=== PATIENT | male | born 1930 | race Caucasian/White ===

== ENCOUNTER 2017-11-30 16:52 | Inpatient (IN) ==
[2017-11-30] MEDS ORDERED: Azithromycin 500 MG in D5% in Water 250 ML IVPB ONE (17:36)
[2017-11-30 17:46] LABS: INR 1.4; Prothrombin Time 15.3 Seconds (9.4-12.1)
[2017-11-30 17:49] LABS: Activated Partial Thrombo Time 27.6 Seconds (26.0-36.0)
[2017-11-30] MEDS ORDERED: cefTRIAXone 2,000 MG in Water for inj. (sterile) 20 ML 20 ML IVP ONE (17:56)
[2017-11-30 17:58] LABS: BUN/Creatinine Ratio 19 (6-26); Blood Urea Nitrogen 23 mg/dL (8-23); Calcium 8.4 mg/dL (8.6-10.3); Carbon Dioxide 26 mEq/L (23-29); Chloride 106 mEq/L (98-107); Glucose 123 mg/dL (70-105); Osmolality,Calculated 287 (280-300); Potassium 4.9 mEq/L (3.5-5.1); Sodium 136 mEq/L (136-145); eGFR For African Americans > 60 (> 60); eGFR For Non-African Americans 55 (> 60)
[2017-11-30 18:05] LABS: Troponin I 0.06 ng/mL (< 0.04)
[2017-11-30] MEDS ORDERED: Aspirin 81 MG TAB.CHEW PO STA (18:15)
[2017-11-30 18:55] LABS: Eosinophils % 1.2 %; Lymphocytes % 7.6 %; Mean Corpuscular Hemoglobin 27.9 pg (28.0-33.3)
[2017-11-30 18:57] LABS: Basophils # 0.1 K/mcL (0.0-0.2); Basophils % 0.7 %; Eosinophils # 0.1 K/mcL (0.0-0.6); Hematocrit 43.9 % (37.5-50.1); Hemoglobin 14.6 g/dL (12.9-16.9); Immature Granulocytes % 0.4 % (0-4); Lymphocytes # 0.6 K/mcL (0.6-4.6); Mean Corpuscular HGB Conc 33.3 g/dL (31.6-35.5); Mean Corpuscular Volume 83.9 fL (83.0-100.0); Monocytes # 1.1 K/mcL (0.0-1.3); Monocytes % 14.5 %; Red Blood Count 5.23 M/mcL (4.19-5.50); Segmented Neutrophils % 75.6 %
--- NOTE | 2017-11-30 19:00 | Emergency Department Note ---
Disposition Clinical Impression: Elevated troponin I level, Thrombocytopenia, Hypoxemia Community acquired pneumonia Qualifiers: Laterality: unspecified laterality Qualified Code(s): J18.9 - Pneumonia, unspecified organism Disposition: Admitted As Inpatient Condition: Fair Referrals: NONE,PCP [Primary Care Provider] - Forms: ED Satisfaction Letter Time of Disposition: 20:11 SOB HPI - General Chief Complaint: ED Shortness of Breath/Dyspnea Stated Complaint: SOB Time Seen by Provider: 11/30/17 17:13 Source: patient Mode of arrival: ambulatory Limitations: no limitations Nursing Notes Reviewed: Yes Vital Signs Reviewed: Yes - History of Present Illness Patient is an 87-year-old male who presents to [facility] ED with a chief complaint of shortness of breath. States it has been worsening over the last 2-3 days. He has had a mild cough and states he has some blood streaked sputum when he clears his throat. Denies any nausea, vomiting, fever or chills. No chest pain, abdominal pain, problems with urination or bowel movements. States he has become more short of breath especially with exertion. No prior cardiac history. No prior problems with any congestive heart failure or COPD. Patient does smoke in the past about 50 years ago. Patient is not on any home oxygen. Pt Subjective Complaint: shortness of breath Onset (ago): day(s) Context: occurred during exertion Severity: moderate Consistency/Duration: gradually worsening Improves with: rest Worsens with: exertion Associated symptoms: Reports: cough. Denies: chest pain, fever, wheezing, nausea/vomiting, abdominal pain Treatment prior to arrival: none Cough present: Yes Cough Frequency: Intermittent Sputum production: No - Related Data Home oxygen amount: none Home Medications Medication Instructions Recorded Confirmed No Known Home Drugs 11/02/16 11/30/17 Allergies Allergy/AdvReac Type Severity Reaction Status Date / Time No Known Allergies Allergy Verified 11/30/17 15:25 All systems ED: reviewed and negative except as stated. Past Medical History - Past Medical History Attestation: Yes The following information was validated with the patient. Source: patient Medical history: Reports: hyperlipidemia, hypertension Surgical history: Reports: prostatectomy Psychiatric history: Reports: depression - Social History Smoking Status: Never smoker Smokeless Tobacco Status: No Alcohol use: Reports: none Drug use: Reports: none Physical Exam - General Limitations: no limitations General appearance: alert - Head Head exam: atraumatic, normocephalic, normal inspection - Eye Eye exam: Present: normal appearance, PERRL, EOMI - ENT ENT exam: normal exam, normal oropharynx, mucous membranes moist - Neck Neck exam: Present: normal inspection, full ROM, trachea midline - Chest Chest inspection: Present: normal inspection, symmetric chest wall rise - Respiratory Respiratory exam: Present: other (Mildly decreased breath sounds) - Cardiovascular Cardiovascular exam: Present: regular rate, normal rhythm, normal heart sounds - Abdominal Exam Abdominal exam: Present: soft, Non-Tender. Absent: tenderness, distention, guarding, rebound, rigidity - Extremities Exam Extremities exam: Present: normal inspection, full ROM. Absent: tenderness, pedal edema - Back Exam Back exam: Present: normal inspection, full ROM. Absent: tenderness - Neurological Exam Neurological exam: Present: alert, oriented X3 - Psychiatric Psychiatric exam: Present: normal affect, normal mood - Skin Skin exam: Present: warm, dry, intact, normal color Course Course Narrative: Patient seen and examined. Shortness of breath worsening over the last several days. He is currently on room air and saturating about 91%. Chest x-ray done at urgent care showed bilateral pneumonia. We will start on IV Rocephin and azithromycin. Cardiopulmonary workup initiated here. - Reevaluation(s) Reevaluation #1: Labwork shows mildly elevated troponin of 0.06. BNP slightly elevated in the 200s. Patient was given a dose of aspirin. I discussed with hospitalist Dr. Yasmany ramon who has accepted patient for admission. He would like a dose of 10 mg of hydralazine. I went back to evaluate the patient to see if his blood pressure had improved, which the systolic blood pressure has gone to 164. He is not on any antihypertensive medications. Since he is asymptomatic at this time, we will hold off on any BP medications. Patient oxygen status is 94% on 2 L at this time. Time: 20:10 Vital Signs Temperature 97.3 F L 11/30/17 16:55 Pulse Rate 91 11/30/17 16:55 Respiratory Rate 22 11/30/17 16:55 Blood Pressure 227/97 11/30/17 16:55 O2 Sat by Pulse Oximetry 89 11/30/17 16:55 Temperature 97.3 F L 11/30/17 16:55 Pulse Rate 85 11/30/17 18:26 Respiratory Rate 15 11/30/17 18:26 Blood Pressure 177/101 11/30/17 18:26 O2 Sat by Pulse Oximetry 93 11/30/17 18:26 Oxygen Delivery Oxygen Delivery Nasal Cannula Shortness of Breath/Dyspnea - Medical Records Medical records reviewed: Yes I reviewed the patient's medical records. - Lab Data Lab results reviewed: Yes I reviewed the patient's lab results. Result diagrams: 11/30/17 18:19 11/30/17 17:26 Lab Results 11/30/17 11/30/17 11/30/17 Range/Units 17:26 17:26 17:26 WBC (4.3-11.1) K/mcL RBC (4.19-5.50) M/mcL Hgb (12.9-16.9) g/dL Hct (37.5-50.1) % MCV (83.0-100.0) fL MCH (28.0-33.3) pg MCHC (31.6-35.5) g/dL RDW (11.5-14.5) % Plt Count MPV Immature Gran % (0-4) % Seg Neutrophils % % Lymphocytes % % Monocytes % % Eosinophils % % Basophils % % Neutrophils # (1.6-8.9) K/mcL Lymphocytes # (0.6-4.6) K/mcL Monocytes # (0.0-1.3) K/mcL Eosinophils # (0.0-0.6) K/mcL Basophils # (0.0-0.2) K/mcL Plt Count ,Citrate (150-600) PT (9.4-12.1) Seconds INR APTT (26.0-36.0) Seconds Sodium 136 (136-145) mEq/L Potassium 4.9 (3.5-5.1) mEq/L Chloride 106 (98-107) mEq/L Carbon Dioxide 26 (23-29) mEq/L BUN 23 (8-23) mg/dL Creatinine 1.23 (0.70-1.30) mg/dL Est GFR ( Amer) > 60 (> 60) Est GFR (Non-Af Amer) 55 L (> 60) BUN/Creatinine Ratio 19 (6-26) Glucose 123 H (70-105) mg/dL Calculated Osmolality 287 (280-300) Lactic Acid 1.4 (0.5-2.2) mmol/L Calcium 8.4 L (8.6-10.3) mg/dL Troponin I 0.06 H* (< 0.04) ng/mL B-Natriuretic Peptide 263 H (Less than 100) pg/mL Specimen Rejected 11/30/17 11/30/17 11/30/17 Range/Units 17:26 17:26 18:19 WBC 7.6 (4.3-11.1) K/mcL RBC 5.23 (4.19-5.50) M/mcL Hgb 14.6 (12.9-16.9) g/dL Hct 43.9 (37.5-50.1) % MCV 83.9 (83.0-100.0) fL MCH 27.9 L (28.0-33.3) pg MCHC 33.3 (31.6-35.5) g/dL RDW 13.0 (11.5-14.5) % Plt Count TNP MPV TNP Immature Gran % 0.4 (0-4) % Seg Neutrophils % 75.6 % Lymphocytes % 7.6 % Monocytes % 14.5 % Eosinophils % 1.2 % Basophils % 0.7 % Neutrophils # 5.8 (1.6-8.9) K/mcL Lymphocytes # 0.6 (0.6-4.6) K/mcL Monocytes # 1.1 (0.0-1.3) K/mcL Eosinophils # 0.1 (0.0-0.6) K/mcL Basophils # 0.1 (0.0-0.2) K/mcL Plt Count ,Citrate (150-600) PT 15.3 H (9.4-12.1) Seconds INR 1.4 APTT 27.6 (26.0-36.0) Seconds Sodium (136-145) mEq/L Potassium (3.5-5.1) mEq/L Chloride (98-107) mEq/L Carbon Dioxide (23-29) mEq/L BUN (8-23) mg/dL Creatinine (0.70-1.30) mg/dL Est GFR ( Amer) (> 60) Est GFR (Non-Af Amer) (> 60) BUN/Creatinine Ratio (6-26) Glucose (70-105) mg/dL Calculated Osmolality (280-300) Lactic Acid (0.5-2.2) mmol/L Calcium (8.6-10.3) mg/dL Troponin I (< 0.04) ng/mL B-Natriuretic Peptide (Less than 100) pg/mL Specimen Rejected Clotted 11/30/17 11/30/17 Range/Units 18:19 19:54 WBC (4.3-11.1) K/mcL RBC (4.19-5.50) M/mcL Hgb (12.9-16.9) g/dL Hct (37.5-50.1) % MCV (83.0-100.0) fL MCH (28.0-33.3) pg MCHC (31.6-35.5) g/dL RDW (11.5-14.5) % Plt Count MPV 10.4 Immature Gran % (0-4) % Seg Neutrophils % % Lymphocytes % % Monocytes % % Eosinophils % % Basophils % % Neutrophils # (1.6-8.9) K/mcL Lymphocytes # (0.6-4.6) K/mcL Monocytes # (0.0-1.3) K/mcL Eosinophils # (0.0-0.6) K/mcL Basophils # (0.0-0.2) K/mcL Plt Count ,Citrate 113.3 L (150-600) PT (9.4-12.1) Seconds INR APTT (26.0-36.0) Seconds Sodium (136-145) mEq/L Potassium (3.5-5.1) mEq/L Chloride (98-107) mEq/L Carbon Dioxide (23-29) mEq/L BUN (8-23) mg/dL Creatinine (0.70-1.30) mg/dL Est GFR ( Amer) (> 60) Est GFR (Non-Af Amer) (> 60) BUN/Creatinine Ratio (6-26) Glucose (70-105) mg/dL Calculated Osmolality (280-300) Lactic Acid 1.0 (0.5-2.2) mmol/L Calcium (8.6-10.3) mg/dL Troponin I (< 0.04) ng/mL B-Natriuretic Peptide (Less than 100) pg/mL Specimen Rejected - Radiology Data Radiology results reviewed: Yes I reviewed the patient's radiology results. - EKG Data EKG attestation: Yes I reviewed and interpreted this EKG. EKG results narrative: EKG done at 1721 shows normal sinus rhythm with a rate of [address] elevation or depression. Left axis deviation. No prior EKG for comparison. Attestation Statement - Attestation Attestation: I examined this patient and my medical decision-making was reviewed with the Resident Physician, Dr. Ohara. I agree with the documented findings, disposition and treatment plan as described except to the extent set forth below. Patient is an 87-year-old white male who presents to the emergency department brought by family from urgent care for evaluation of pneumonia and hypoxia. Patient states he awoke Tuesday morning with upper respiratory symptoms including nasal congestion and occasional productive cough with yellow sputum. Patient has had gradually worsening shortness of breath and states when he tries to take a full breath he ends up coughing and feels just generally short of breath. Patient denies any chest pain pressure or heaviness or discomfort. Patient denies any prior cardiac history or testing, is a former smoker who quit over 50 years ago. Patient denies any history of lung disease is not on oxygen at home her oxygen requiring. Patient denies any diaphoresis associated with this, no nausea vomiting, no abdominal pain or back pain. Patient denies any ill contacts as of recent. Patient also complains of just generalized body aches since the onset of the symptoms on Tuesday. I agree with patient's physical exam findings as documented. Patient with mild conversational dyspnea at bedside and hypoxia on room air. Patient is much improved with nasal cannula oxygen. Patient's chest x-ray from the urgent care shows bilateral pneumonia worse on the left than the right. Patient had lab evaluation including rapid flu testing EKG and troponin. Patient's EKG was normal sinus rhythm with no acute ischemia. Patient does have a mild elevation in troponin with normal kidney function. On reevaluation patient denies any chest discomfort and repeat EKG remains unchanged. IV antibiotics were initiated. Patient's vital signs and blood pressure have remained stable throughout his ED course and he has not had any worsening of his breathing status. Patient's lactate is within normal limits. Patient will be admitted for bilateral pneumonia with hypoxia and elevated troponin.
[2017-11-30 19:33] LABS: Mean Platelet Volume 10.4 fL (9.4-12.4)
[2017-11-30 19:39] LABS: Neutrophils # 5.8 K/mcL (1.6-8.9)
[2017-11-30] MEDS ORDERED: Naloxone 0.4 MG/ML INJ IVP PRN (22:16)
[2017-11-30] MEDS ORDERED: Acetaminophen 325 MG TABLET PO PRN (22:16)
[2017-11-30] MEDS ORDERED: Albuterol 2.5 MG/3 ML NEBULIZER IH PRN (22:23)
--- NOTE | 2017-11-30 22:36 | Internal Med History&Physical ---
Date of Encounter: 12/01/17 Time of Encounter: 21:50 Assessment and Plan (1) Community acquired pneumonia Current visit: Yes Status: Acute CXR shows bilateral airspace disease, and trace effusions Afebrile, no leukocytosis. Hypoxic on arrival to the ED with O2 89% No lower extremity edema, or crackles on lung exam. Continue Rocephin and Azithromycin. O2 supplementation, DuoNeb's, and telemetry Qualifiers: Laterality: unspecified laterality Qualified Code(s): J18.9 - Pneumonia, unspecified organism (2) Hypoxemia Current visit: Yes Status: Acute 89% on room air in the emergency department. Currently 92-93% on 2-3 L O2 nasal cannula. Continue O2 supplementation and respiratory support Does report some intermittent calf pain, recent traveling, history of previous cancer. No leg edema or tachycardia. Will check D-dimer. (3) Hypertensive urgency Current visit: Yes Status: Acute Initial BP 227/97. Repeat BP 177-187/88-101. Denies headache, vision changes, lightheadedness, dizziness, or chest pain Patient denies being on any medications he is receiving medical care for several years Previously admitted with elevated BP as well Check Echocardiogram Start Metoprolol 12.5mg BID. Hydralazine PRN (4) Elevated troponin I level Current visit: Yes Status: Acute Troponin 0.06. Patient denies any chest pain, pressure, or palpitations EKG shows normal sinus rhythm with heart rate of 80, left axis deviation, and no ST changes Unlikely cardiac in nature. Likely demand ischemia secondary to pneumonia and hypertension Trend troponins 3 (5) Thrombocytopenia Current visit: Yes Status: Acute Platelets 113. Unclear etiology. Patient reports small amount of blood streaked sputum when he clears his throat over the past few days. Hgb 14.6. Denies hematemesis, hematochezia, melena, hematuria, or any other signs of bleeding. Continue to monitor (6) Decreased GFR Current visit: Yes Status: Acute GFR is 55. Creatinine 1.23. No prior labs for comparison. Unclear if this is the patient's baseline or if this is MERCEDES. Provide gentle hydration. Avoid nephrotoxins. Continue to monitor renal function. (7) DVT prophylaxis Current visit: Yes Status: Acute Subcutaneous heparin Internal Medicine - H&P: HPI Chief complaint: Shortness of breath Admitted From: Emergency Dept History of present illness: Mr. Posada is a 87 year old male with PMH of hypertension, who has not seen a physician in several years, presented to the emergency department with a 2 to three-day history of worsening shortness of breath. His breathing is worse with exertion, improves with rest. Denies orthopnea. Associated symptoms include some nasal congestion, mild intermittent cough, some blood-streaked streaked sputum when he clears his throat, and thoracic/low back pain. He states that his cough is very mild, but he is more concerned about the blood- streaked sputum when he clears his throat. He does report that he had an EGD last year, that revealed several "lesions" but no active bleeding. He denies fevers, chills, chest pain, pleuritic pain, dysphagia, abdominal pain, N/V, change in bowels, hematochezia, melena, dysuria, hematuria, or LE edema. He reports a history of hypertension and prostate cancer s/p prostatectomy, but he is not being treated for these any longer. He takes no medications. He states that he previously had a procedure on his prostate many years ago. He does report that over the past several months he has been having some bilateral lower extremity pain, pointing to his calf muscles. He states that the right seems to be worse than left. He states the pain is very intermittent, seemingly with no particular pattern. He denies lower extremity edema. He does report recent travel flying to [place] and back, and he had an hour long care ride last week. Previously was very active and exercised a lot, but reports that over the past several months he has not been exercising as much. Denies recent surgery. Denies hormone therapy. Past Med Surg Social Fam HX - Past Medical History Medical history: hyperlipidemia, hypertension Psychiatric history: depression - Past Surgical History Surgical History: prostatectomy - Social History Smoking Status: Never smoker Smokeless Tobacco Status: No Alcohol use: none Drug use: none - Family History Mother History Unknown: Yes Adopted: [place]: Nancy Posada Age: 99 Age at : 89 Cause of : per family old age Internal Medicine - H&P: Meds No Known Home Drugs 11/02/16 [History] 3 Allergy/AdvReac Type Severity Reaction Status Date / Time No Known Allergies Allergy Verified 11/30/17 15:25 All Systems PM: A 10-system review of systems was performed and is negative for pertinent findings except as documented above in the HPI. - Constitutional Vitals: Temp Pulse Resp BP Pulse Ox 97.3 F L 85 18 178/88 93 11/30/17 16:55 11/30/17 18:26 11/30/17 21:04 11/30/17 21:04 11/30/17 18:26 General appearance: Present: A&O X 3, no acute distress - Head Head exam: Present: atraumatic, normocephalic - Eye Eye exam: Present: EOMI, PERRL, conjuntiva pink, sclera anicteric - Neck Neck exam general surgery: Present: supple, trachea midline. Absent: lymphadenopathy - Respiratory Respiratory exam: Present: wheezes (Bilaterally). Absent: accessory muscle use , CTAB, rales, rhonchi - Cardiovascular Cardiovascular exam: Present: RRR, +S1, +S2. Absent: diastolic murmur, systolic murmur - GI/Abdominal GI/Abdominal exam: Present: normal bowel sounds, soft, no peritoneal signs. Absent: distended, tenderness - Extremities Exam Extremities exam: Present: calf tenderness (Bilaterally), warm, radial pulses palpable and symmetrical. Absent: cyanotic, pedal edema - Neurological Exam Neurological exam: Present: CN II-XII intact, oriented X3, no focal deficits. Absent: facial droop, speech deficit - Skin Skin exam: Present: dry, intact Internal Med - H&P Results - Labs CBC & Chem 7: 11/30/17 18:19 11/30/17 17:26
[2017-11-30] MEDS: Ipratropium/Albuterol Neb 3 ML IH SCH (22:52)
[2017-11-30] MEDS ORDERED: hydrALAZINE 10 MG TABLET PO ONE (23:02)
[2017-11-30] MEDS ORDERED: hydrALAZINE 10 MG TABLET PO PRN (23:02)
[2017-11-30] MEDS ORDERED: 0.9 % Sodium Chloride 1,000 ML IVC SCH (23:15)
[2017-11-30] MEDS ORDERED: *HR* Heparin 5,000 UNIT/ML VIAL SQ SCH (23:15)
[2017-12-01 00:59] LABS: Basophils % 0.6 %; Eosinophils # 0.1 K/mcL (0.0-0.6); Eosinophils % 1.7 %; Hematocrit 43.6 % (37.5-50.1); Hemoglobin 14.3 g/dL (12.9-16.9); Immature Granulocytes % 0.6 % (0-4); Lymphocytes # 0.9 K/mcL (0.6-4.6); Lymphocytes % 12.4 %; Mean Corpuscular HGB Conc 32.8 g/dL (31.6-35.5); Mean Corpuscular Hemoglobin 27.8 pg (28.0-33.3); Mean Corpuscular Volume 84.8 fL (83.0-100.0); Monocytes # 1.1 K/mcL (0.0-1.3); Monocytes % 15.4 %; Neutrophils # 4.9 K/mcL (1.6-8.9); Platelet Count 112 K/mcL (140-400); Red Blood Count 5.14 M/mcL (4.19-5.50); Red Cell Distribution Width 12.8 % (11.5-14.5); Segmented Neutrophils % 69.3 %
[2017-12-01 01:18] LABS: BUN/Creatinine Ratio 19 (6-26); Blood Urea Nitrogen 22 mg/dL (8-23); Calcium 8.1 mg/dL (8.6-10.3); Carbon Dioxide 27 mEq/L (23-29); Chloride 104 mEq/L (98-107); Glucose 131 mg/dL (70-105); Osmolality,Calculated 287 (280-300); Potassium 4.1 mEq/L (3.5-5.1); Sodium 136 mEq/L (136-145); eGFR For African Americans > 60 (> 60); eGFR For Non-African Americans > 60 (> 60)
--- NOTE | 2017-12-01 01:31 | Event Note ---
Date of Encounter: 12/01/17 Time of Encounter: 01:24 She was seen and examined. Agree with the H&P as written by the Resident Physician Patient with shortness of breath and hypoxia. Does not really follow up with PCP. sats 89%. Has b/l pneumonia and started on IV abx. Has blood tinged sputum and reports calf pain. ??DVT/PE. Will check D-dimers and check for PE/DVT if elevated. He has some concerning symptoms with the blood tinged sputum and recent travel to [place]. f/u on cultures. check urine strep/legionella. Start Lopressor for elevated BP. Hydralazine PRN. Trend cardiac enzymes TTE.
[2017-12-01] MEDS: Ipratropium/Albuterol Neb 3 ML IH SCH ×5 (04:04→22:06)
[2017-12-01] MEDS ORDERED: *HR* Heparin 5,000 UNIT/ML VIAL IVP PRN ×2 (04:13)
[2017-12-01] MEDS ORDERED: *HR* Heparin 5,000 UNIT/ML VIAL IVP ONE (04:13)
--- NOTE | 2017-12-01 04:19 | Event Note ---
Date of Encounter: 12/01/17 Time of Encounter: 04:17 D-dimer was elevated. CTA chest was ordered and showed bilateral PE, no evidence of her RV strain. Radiologist also discussed a focal density that could be an infarct versus a tumor, and mentioned that this would be to be followed up long-term. Will place the patient on a heparin drip. Echocardiogram is pending.
[2017-12-01 05:14] LABS: Hematocrit 46.9 % (37.5-50.1); Hemoglobin 15.5 g/dL (12.9-16.9); Immature Platelets 3.2 % (1.1-6.1); Mean Corpuscular Hemoglobin 28.1 pg (28.0-33.3); Mean Corpuscular Volume 85.1 fL (83.0-100.0); Mean Platelet Volume 11.4 fL (9.4-12.4); Red Blood Count 5.51 M/mcL (4.19-5.50); Red Cell Distribution Width 12.9 % (11.5-14.5)
[2017-12-01 05:22] LABS: INR 1.3; Prothrombin Time 14.5 Seconds (9.4-12.1)
[2017-12-01] MEDS: Heparin 25,000 UNIT/500 ML D5W 25,000 UNIT/500 ML BAG IVC SCH (05:54)
[2017-12-01] MEDS: amLODIPine 5 MG TABLET PO SCH (10:20)
--- NOTE | 2017-12-01 13:12 | Internal Med Progress Note ---
Date of Encounter: 12/01/17 Time of Encounter: 13:11 - Assessment and plan (1) Pulmonary embolism and infarction Current Visit: Yes Status: Acute Assessment and plan: Unprovoked Risk factor-immobility, recent long duration flight Troponin and BNP elevated, however, CTA with no evidence of R heart strain Obtain ECHO , follow reports Continue heparin drip Not hypoxic during evaluation, continue to monitor and O2 supplementation by nasal cannula prn, goal O2 sat >92% (2) Community acquired pneumonia Current Visit: Yes Status: Acute Assessment and plan: CXR shows bilateral airspace disease, and trace effusions Afebrile, no leukocytosis. Hypoxic on arrival to the ED with O2 89% No lower extremity edema, or crackles on lung exam. Continue Rocephin and Azithromycin. O2 supplementation, DuoNeb's, and telemetry Qualifiers: Laterality: unspecified laterality Qualified Code(s): J18.9 - Pneumonia, unspecified organism (3) Elevated troponin I level Current Visit: Yes Status: Acute Assessment and plan: Adynamic. Troponin 0.06. Patient denies any chest pain, pressure, or palpitations EKG shows normal sinus rhythm with heart rate of 80, left axis deviation, and no ST changes Unlikely cardiac in nature. Likely demand ischemia secondary to HTN Urgency, PE and pneumonia (4) Hypertensive urgency Current Visit: Yes Status: Acute Assessment and plan: Initial BP 227/97. Repeat BP 177-187/88-101. Denies headache, vision changes, lightheadedness, dizziness, or chest pain Patient denies being on any medications nor receiving medical care for several years Start on Norvasc 10mg po daily Continue to monitor Follow ECHO (5) Hypoxemia Current Visit: Yes Status: Acute Assessment and plan: 89% on room air in the emergency department Not requring O2 at time of review May have improved with starting anticoagulation (6) Thrombocytopenia Current Visit: Yes Status: Acute Assessment and plan: Platelets 113. Unclear etiology Patient with henoptysis Continue to monitor (7) Decreased GFR Current Visit: Yes Status: Resolved (8) Lesion of liver Current Visit: Yes Status: Acute Assessment and plan: suspected to be mets, vs cysts, vs hemangiomas Obtain RUQ USS (9) Pulmonary nodule Current Visit: Yes Status: Acute Assessment and plan: in the setting of PNA and bilateral embolism with infarct for repeat imaging when stable - Time Spent With Patient Total time spent is greater than 50% in coordination of care (as documented) at patient's floor/unit and/or counseling patient: - Subjective Interval history: Seen and examined at the bedside with family members. 87-year-old male patient with no medical history, however history of hypertension in the remote past history of smoking. He is admitted and being managed for pulmonary embolism with infarct, hypertensive urgency, suspected pneumonia, and suspected liver metastasis. The patient reports pleuritic chest pain worse on the left, reports he still having cough with hemoptysis. He is hemodynamically stable at this time. Workup on admission shows elevated d-dimer, elevated troponin level, elevated BNP, flu swab was negative, CT shows bilateral pulmonary embolism as well as right upper lobe lesion, PNA - Constitutional Vitals: Temp Pulse Resp BP Pulse Ox 98 F 78 20 154/77 94 12/01/17 10:42 12/01/17 10:42 12/01/17 10:54 12/01/17 10:42 12/01/17 10:54 General appearance: Present: A&O X 3, no acute distress - Head Head exam: Present: atraumatic, normocephalic - Eye Eye exam: Present: PERRL, conjuntiva pink, sclera anicteric Pupils: Present: PERRL - Neck Neck exam general surgery: Present: supple, trachea midline. Absent: lymphadenopathy - Respiratory Respiratory exam: Present: CTAB. Absent: accessory muscle use, rales, rhonchi, wheezes - Cardiovascular Cardiovascular exam: Present: RRR, +S1, +S2. Absent: diastolic murmur, gallop, rubs, systolic murmur - GI/Abdominal GI/Abdominal exam: Present: normal bowel sounds, soft, no peritoneal signs. Absent: distended, tenderness - Extremities Exam Extremities exam: Present: warm, radial pulses palpable and symmetrical. Absent : calf tenderness, cyanotic, pedal edema - Neurological Exam Neurological exam: Present: alert, CN II-XII intact, oriented X3, no focal deficits. Absent: pronater drift, facial droop, speech deficit - Skin Skin exam: Present: dry, intact Internal Medicine: Result - Labs CBC & Chem 7: 12/01/17 04:39 12/01/17 00:20 Labs: Short CBC 12/01/17 Range/Units 04:39 WBC 7.0 (4.3-11.1) K/mcL Hgb 15.5 (12.9-16.9) g/dL Hct 46.9 (37.5-50.1) % Plt Count 238 D (140-400) K/mcL Cardiac Enzymes 12/01/17 Range/Units 07:25 Troponin I 0.06 H* (< 0.04) ng/mL - ABG Interpretation ABG results: PT/INR, D-dimer PT 14.5 Seconds (9.4-12.1) H 12/01/17 04:39 D-Dimer [id number] ng/mLFEU (0-500) H 12/01/17 00:20 Consult Discharge Plan - Plan Referrals: NONE,PCP [Primary Care Provider] - Prescriptions: Rivaroxaban [Xarelto] 1 dose PO AD 30 Days pack
[2017-12-01] MEDS ORDERED: 0.9 % Sodium Chloride 500 ML ONE (13:23)
[2017-12-01] MEDS: Azithromycin 500 MG in D5% in Water 250 ML IVPB SCH (16:38)
[2017-12-01] MEDS: cefTRIAXone 1,000 MG in Water for inj. (sterile) 20 ML 10 ML IVP SCH (16:39)
[2017-12-02 02:04] LABS: BUN/Creatinine Ratio 14 (6-26); Blood Urea Nitrogen 14 mg/dL (8-23); Calcium 7.7 mg/dL (8.6-10.3); Carbon Dioxide 26 mEq/L (23-29); Chloride 106 mEq/L (98-107); Glucose 123 mg/dL (70-105); Osmolality,Calculated 288 (280-300); Sodium 138 mEq/L (136-145); eGFR For African Americans > 60 (> 60); eGFR For Non-African Americans > 60 (> 60)
[2017-12-02 02:15] LABS: Basophils # 0.1 K/mcL (0.0-0.2); Basophils % 0.8 %; Eosinophils # 0.1 K/mcL (0.0-0.6); Eosinophils % 1.1 %; Hematocrit 41.2 % (37.5-50.1); Hemoglobin 13.9 g/dL (12.9-16.9); Immature Granulocytes % 0.3 % (0-4); Immature Platelets 3.2 % (1.1-6.1); Lymphocytes # 0.9 K/mcL (0.6-4.6); Lymphocytes % 11.3 %; Mean Corpuscular HGB Conc 33.7 g/dL (31.6-35.5); Mean Corpuscular Hemoglobin 28.4 pg (28.0-33.3); Mean Corpuscular Volume 84.1 fL (83.0-100.0); Mean Platelet Volume 10.8 fL (9.4-12.4); Monocytes # 1.2 K/mcL (0.0-1.3); Monocytes % 16.6 %; Neutrophils # 5.2 K/mcL (1.6-8.9); Platelet Count 249 K/mcL (140-400); Red Cell Distribution Width 12.9 % (11.5-14.5); Segmented Neutrophils % 69.9 %
[2017-12-02] MEDS: Heparin 25,000 UNIT/500 ML D5W 25,000 UNIT/500 ML BAG IVC SCH (03:00)
[2017-12-02] MEDS: Ipratropium/Albuterol Neb 3 ML IH SCH ×4 (04:22→22:08)
[2017-12-02] MEDS: amLODIPine 5 MG TABLET PO SCH (10:12)
--- NOTE | 2017-12-02 12:38 | Internal Med Progress Note ---
Date of Encounter: 12/02/17 Time of Encounter: 12:38 - Assessment and plan (1) Pulmonary embolism and infarction Current Visit: Yes Status: Acute Assessment and plan: Unprovoked Risk factor-immobility, recent long duration flight Troponin and BNP elevated, however, CTA with no evidence of R heart strain ECHO unremarkable preserved EF, Right ventricle reported as normal Continue heparin drip, bridge with eliquism insurance will not pay for xarelto, [place] eliqu[place] Not hypoxic during evaluation, continue to monitor and O2 supplementation by nasal cannula prn, goal O2 sat >92% (2) Community acquired pneumonia Current Visit: Yes Status: Acute Assessment and plan: CXR shows bilateral airspace disease, and trace effusions Afebrile, no leukocytosis. Hypoxic on arrival to the ED with O2 89% No lower extremity edema, or crackles on lung exam. Continue Rocephin and Azithromycin. O2 supplementation, DuoNeb's, and telemetry Qualifiers: Laterality: unspecified laterality Qualified Code(s): J18.9 - Pneumonia, unspecified organism (3) Elevated troponin I level Current Visit: Yes Status: Acute Assessment and plan: Adynamic. Troponin 0.06. Patient denies any chest pain, pressure, or palpitations EKG shows normal sinus rhythm with heart rate of 80, left axis deviation, and no ST changes Unlikely cardiac in nature. Likely demand ischemia secondary to HTN Urgency, PE and pneumonia ECHO showed preserved EF with normal wall motion (4) Hypertensive urgency Current Visit: Yes Status: Resolved Assessment and plan: Initial BP 227/97. Repeat BP 177-187/88-101. Denies headache, vision changes, lightheadedness, dizziness, or chest pain Patient denies being on any medications nor receiving medical care for several years but is a known hypertensive Continue NOrvasc 10mg (5) Hypoxemia Current Visit: Yes Status: Acute Assessment and plan: 89% on room air in the emergency department Not requring O2 at time of review May have improved with starting anticoagulation (6) Thrombocytopenia Current Visit: Yes Status: Resolved Assessment and plan: Platelets 113 on admission, resolved . Unclear etiology Patient with henoptysis Continue to monitor (7) Decreased GFR Current Visit: Yes Status: Resolved (8) Lesion of liver Current Visit: Yes Status: Acute Assessment and plan: suspected to be mets, vs cysts, vs hemangiomas Obtain RUQ USS Per family, unlikely that they will pursue any intervention (9) Pulmonary nodule Current Visit: Yes Status: Acute Assessment and plan: in the setting of PNA and bilateral embolism with infarct for repeat imaging when stable (10) Dementia Current Visit: Yes Status: Suspected Assessment and plan: suspected Per family, patient is very forgetful He is also confused Needs MME by PCP-has appt for tuesday 12/05 MOnitor closely Qualifiers: Dementia type: unspecified type Dementia behavioral disturbance: without behavioral disturbance Qualified Code(s): F03.90 - Unspecified dementia without behavioral disturbance - Time Spent With Patient Total time spent is greater than 50% in coordination of care (as documented) at patient's floor/unit and/or counseling patient: - Subjective Interval history: Seen and examined at the bedside with family members. 87-year-old male patient with no medical history, however history of hypertension in the remote past history of smoking. He is admitted and being managed for pulmonary embolism with infarct, hypertensive urgency, suspected pneumonia, and suspected liver metastasis. He has not had any episode of hemoptysis today It seems the patient ,ay have dementia as he did not remember most of what this provider discussed with him 12/01, he did not remember this provider-I spent 40 mins in his room 12/01 discussing his multiple diagnoses with him No new complains today Needs O2 qualification test. - Constitutional Vitals: Temp Pulse Resp BP Pulse Ox 97.9 F 83 18 158/70 92 12/02/17 10:39 12/02/17 10:39 12/02/17 10:39 12/02/17 10:39 12/02/17 10:39 General appearance: Present: A&O X 3, no acute distress - Head Head exam: Present: atraumatic, normocephalic - Eye Eye exam: Present: PERRL, conjuntiva pink, sclera anicteric Pupils: Present: PERRL - Neck Neck exam general surgery: Present: supple, trachea midline. Absent: lymphadenopathy - Respiratory Respiratory exam: Present: CTAB. Absent: accessory muscle use, rales, rhonchi, wheezes - Cardiovascular Cardiovascular exam: Present: RRR, +S1, +S2. Absent: diastolic murmur, gallop, rubs, systolic murmur - GI/Abdominal GI/Abdominal exam: Present: normal bowel sounds, soft, no peritoneal signs. Absent: distended, tenderness - Extremities Exam Extremities exam: Present: warm, radial pulses palpable and symmetrical. Absent : calf tenderness, cyanotic, pedal edema - Neurological Exam Neurological exam: Present: alert, CN II-XII intact, oriented X3, no focal deficits. Absent: pronater drift, facial droop, speech deficit - Skin Skin exam: Present: dry, intact Internal Medicine: Result - Labs CBC & Chem 7: 12/02/17 01:23 12/02/17 01:23 Labs: Short CBC 12/02/17 Range/Units 01:23 WBC 7.5 (4.3-11.1) K/mcL Hgb 13.9 D (12.9-16.9) g/dL Hct 41.2 (37.5-50.1) % Plt Count 249 (140-400) K/mcL Neutrophils # 5.2 (1.6-8.9) K/mcL BMP 12/02/17 01:23 Sodium 138 Potassium 4.0 Chloride 106 Carbon Dioxide 26 BUN 14 Creatinine 0.97 Glucose 123 H Calcium 7.7 L - ABG Interpretation ABG results: PT/INR, D-dimer PT 14.5 Seconds (9.4-12.1) H 12/01/17 04:39 D-Dimer 6473 ng/mLFEU (0-500) H 12/01/17 00:20 Consult Discharge Plan - Plan Referrals: Percy Baez MD [Non-Partnered Physician] - 12/05/17 1:30 pm (Hospital Follow Up Appointment scheduled with Dr. Baez on TuesdayDecember 05 at 1:30 PM. Plan for appointment to last 30 minutes. Please bring your photo ID, insurance card, new patient packet that is sent to you in the mail, and any current medications to your appointment. If you need to cancel please give a 24 hour notice. ) Prescriptions: Apixaban [Eliquis] 10 mg PO BID #30 tablet
[2017-12-02] MEDS: cefTRIAXone 1,000 MG in Water for inj. (sterile) 20 ML 10 ML IVP SCH (15:58)
[2017-12-02] MEDS: Azithromycin 500 MG in D5% in Water 250 ML IVPB SCH (15:59)
[2017-12-02] MEDS: Apixaban 5 MG TABLET PO SCH (21:04)
[2017-12-03] MEDS: Ipratropium/Albuterol Neb 3 ML IH SCH ×2 (04:06→10:40)
[2017-12-03 06:24] LABS: Basophils # 0.1 K/mcL (0.0-0.2); Basophils % 0.7 %; Eosinophils # 0.1 K/mcL (0.0-0.6); Eosinophils % 1.3 %; Hematocrit 42.9 % (37.5-50.1); Hemoglobin 14.2 g/dL (12.9-16.9); Immature Granulocytes % 0.3 % (0-4); Lymphocytes # 0.6 K/mcL (0.6-4.6); Lymphocytes % 8.7 %; Mean Corpuscular HGB Conc 33.1 g/dL (31.6-35.5); Mean Corpuscular Hemoglobin 27.6 pg (28.0-33.3); Mean Corpuscular Volume 83.5 fL (83.0-100.0); Mean Platelet Volume 10.6 fL (9.4-12.4); Monocytes # 1.2 K/mcL (0.0-1.3); Monocytes % 16.8 %; Platelet Count 142 K/mcL (140-400); Red Blood Count 5.14 M/mcL (4.19-5.50); Red Cell Distribution Width 13.1 % (11.5-14.5); Segmented Neutrophils % 72.2 %
[2017-12-03] MEDS: Apixaban 5 MG TABLET PO SCH (09:44)
[2017-12-03] MEDS: amLODIPine 5 MG TABLET PO SCH (09:44)
[2017-12-03 10:59] VITALS: BP 140/66
--- NOTE | 2017-12-03 12:11 | Discharge Summary ---
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 He has been started on Norvasc and Metoprolol for HTN, received heparin for anticoagulation, transitioned to Eliquis po. Troponin was elevated , possibly due to demand ischemica, ECHO was unremarkable. Also suspicion of community acquired pneumonia by imaging, treated with IV antibiotics, discharged on Levaquin for 3 more days. Incidental finding of liver cytsts, follow up and monitor as out-patient, it is possible patient has dementia with occasional confusion and forgetfulness as reported by family. AAOX3 throughout hospital stay. Qualified for home O2 and has been discharged on same Date of Encounter: 12/03/17 Time of Encounter: 12:10 - Discharge Diagnosis (1) Pulmonary embolism and infarction Priority: Primary Status: Acute (2) Community acquired pneumonia Priority: Primary Status: Acute Qualifiers: Laterality: unspecified laterality Qualified Code(s): J18.9 - Pneumonia, unspecified organism (3) Elevated troponin I level Priority: Primary Status: Acute (4) Hypertensive urgency Priority: Primary Status: Resolved (5) Hypoxemia Priority: Primary Status: Acute (6) Thrombocytopenia Priority: Primary Status: Resolved (7) Decreased GFR Priority: Primary Status: Resolved (8) Lesion of liver Priority: Primary Status: Acute (9) Pulmonary nodule Priority: Primary Status: Acute (10) Dementia Priority: Secondary Status: Suspected Qualifiers: Dementia type: unspecified type Dementia behavioral disturbance: without behavioral disturbance Qualified Code(s): F03.90 - Unspecified dementia without behavioral disturbance Hospital course: Mr. 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 He has been started on Norvasc and Metoprolol for HTN, received heparin for anticoagulation, transitioned to Eliquis po. Troponin and BNP elevated, however, CTA with no evidence of R heart strain.EKG shows normal sinus rhythm with heart rate of 80, left axis deviation, and no ST change ECHO unremarkable preserved EF, Right ventricle reported as normal Also suspicion of community acquired pneumonia by imaging, treated with IV antibiotics, discharged on Levaquin for 3 more days. Incidental finding of liver cytsts, follow up and monitor as out-patient, it is possible patient has dementia with occasional confusion and forgetfulness as reported by family. AAOX3 throughout hospital stay Qualified for home O2 and has been discharged on same Discharge discussed with: patient, family, nurse - Time Spent with Patient Total time spent providing and/or coordinating discharge services: Greater than 30 minutes - Discharge Medications Prescriptions: Apixaban [Eliquis] 10 mg PO BID #30 tablet Home Medications: Apixaban [Eliquis] 10 mg PO BID #30 tablet 12/02/17 [Rx] Apixaban [Eliquis] 10 mg PO BID tablet 12/03/17 [Rx] Levofloxacin [Levaquin] 750 mg PO DAILY #3 tablet 12/03/17 [Rx] Metoprolol [Lopressor] 12.5 mg PO BID #60 tablet 12/03/17 [Rx] amLODIPine [Norvasc] 10 mg PO DAILY #60 tablet 12/03/17 [Rx] Allergies/Adverse Reactions: 3 Allergy/AdvReac Type Severity Reaction Status Date / Time No Known Allergies Allergy Verified 11/30/17 15:25 Date of admission: 12/01/17 01:28 Primary care physician: PCP NONE Discharging clinician: Glen Amador Anticipated date of discharge: 12/03/17 - Constitutional Vitals: Temp Pulse Resp BP Pulse Ox 97.5 F L 74 16 140/66 93 12/03/17 10:58 12/03/17 10:58 12/03/17 10:58 12/03/17 10:58 12/03/17 10:58 General appearance: Present: A&O X 3, no acute distress - Head Head exam: Present: atraumatic, normocephalic - Eye Eye exam: Present: PERRL, conjuntiva pink, sclera anicteric Pupils: Present: PERRL - Neck Neck exam general surgery: Present: supple, trachea midline. Absent: lymphadenopathy - Respiratory Respiratory exam: Present: CTAB. Absent: accessory muscle use, rales, rhonchi, wheezes - Cardiovascular Cardiovascular exam: Present: RRR, +S1, +S2. Absent: diastolic murmur, gallop, rubs, systolic murmur - GI/Abdominal GI/Abdominal exam: Present: normal bowel sounds, soft, no peritoneal signs. Absent: distended, tenderness - Extremities Exam Extremities exam: Present: warm, radial pulses palpable and symmetrical. Absent : calf tenderness, cyanotic, pedal edema - Neurological Exam Neurological exam: Present: alert, CN II-XII intact, oriented X3, no focal deficits. Absent: pronater drift, facial droop, speech deficit - Skin Skin exam: Present: dry, intact - Patient Status Disposition: Home, Self-Care Condition: Good Functional capacity at discharge: independent ambulation Overall status at discharge: patient is progressing back to baseline - Discharge Instructions Follow Up With: Percy Baez MD [Non-Partnered Physician] - 12/05/17 1:30 pm (Hospital Follow Up Appointment scheduled with Dr. Baez on TuesdayDecember 05 at 1:30 PM. Plan for appointment to last 30 minutes. Please bring your photo ID, insurance card, new patient packet that is sent to you in the mail, and any current medications to your appointment. If you need to cancel please give a 24 hour notice. ) - Diet and Activity Activity: resume usual activities as tolerated, wear oxygen at all times Diet: low salt diet - VTE Documentation of Mechanical Device: Intermittent pneumatic compression device
--- NOTE | 2017-12-03 13:39 | Electrocardiograph Report ---
[place] [id number] Test Date: 2017-11-30 Pat Name: Tyrell Posada Department: 102 Room: 3A25 Gender: M Gas [employer] Rep[employer]r: Ekp : [id number] Requested By: Ethan Posada Order Number: [id number] Reading MD: Khalida Haddad Measurements Intervals [place] Rate: 80 P: 86 AL: 192 QRS: -33 QRSD: 103 T: 39 QT: 379 QTc: 415 Interpretive Statements SINUS RHYTHM MARKED LEFT AXIS DEVIATION [QRS AXIS < -30] Electronically Signed On 12-03-2017 13:37:19 EDT by Khalida Haddad
== END 2017-12-03 13:56 | disposition home or self-care (01) | DRG 175 ==
LOC: EMEROO 16:52 → 3ANU 16:52
PROVIDERS: ADMIT Internal Medicine; ATTEND Internal Medicine